=== PATIENT | female | born 2000 | race Caucasian/White ===

== ENCOUNTER 2019-10-09 18:22 | Emergency (ER) | payer BC ==
[~2019-10-09] VITALS: Ht 165.1 cm; Wt 94.8 kg
[2019-10-09] MEDS ORDERED: BUSPIRONE HCL10 MG PO (19:00)
[2019-10-09] MEDS ORDERED: SINGULAIR 10 MG10 M1 PO (19:01)
[2019-10-09] MEDS ORDERED: LEXAPRO 10 MG T10 M1 PO (19:01)
[2019-10-09] MEDS ORDERED: MOBIC7.5 MG PO (19:55)
[2019-10-09 20:05] VITALS: BP 117/63
== END 2019-10-09 20:05 | disposition home or self-care (01) ==
LOC: ER 18:22
DX: S90.32XA Contusion of left foot, initial encounter (principal); J45.909 Unspecified asthma, uncomplicated; Z79.899 Other long term (current) drug therapy; Z88.1 Allergy status to other antibiotic agents; W20.8XXA Other cause of strike by thrown, projected or falling object, initial encounter; Y93.89 Activity, other specified; Y92.89 Other specified places as the place of occurrence of the external cause; Y99.8 Other external cause status